=== PATIENT | female | born 1950 | race Caucasian/White ===

== ENCOUNTER → 2024-01-28 10:19 | Outpatient (REF) | payer MEDICARE, OTHER, SELFPAY ==
[2024-01-28 12:20] LABS: Glucose 106 mg/dl (70-99)
[2024-01-28 12:25] LABS: Total Thyroxine 8.11 ug/dl (5.5-11.0)
[2024-01-28 12:39] LABS: TSH 0.78 uIU/ml (0.47-4.68)
[2024-01-28 13:15] LABS: Folate > 20.0 ng/ml (2.76-20); Vitamin B12 839 pg/ml (239-931)
[2024-01-30 10:00] LABS: SSA 52 (Ro)(ENA) Ab, IgG 1 AU/mL (0-40); SSA 60 (Ro)(ENA) Ab, IgG 0 AU/mL (0-40); SSB (La)(ENA) Ab, IgG 0 AU/mL (0-40)
[2024-01-31 04:23] LABS: Albumin 4.18 g/dL (3.75-5.01); Alpha 1 Globulin 0.28 g/dL (0.19-0.46); Alpha 2 Globulin 0.68 g/dL (0.48-1.05); Free Kappa Light Chains,Quant 10.93 mg/L (3.30-19.40); Free Lambda Light Chains,Quant 9.89 mg/L (5.71-26.30); IgA 128 mg/dL (68-408); IgG 791 mg/dL (768-1632); IgM 67 mg/dL (35-263); Immunofixation Electrophoresis IFE Done; Kappa/Lambda Fr Light Ratio 1.11 (0.26-1.65); Total Protein-Electrophoresis 6.7 g/dL (6.3-8.2)
== END ==
LOC: REG 10:19
PROVIDERS: ATTENDING PHYSICIAN Specialist
DX: G60.3 Idiopathic progressive neuropathy (principal); E03.9 Hypothyroidism, unspecified; E11.42 Type 2 diabetes mellitus with diabetic polyneuropathy; D51.8 Other vitamin B12 deficiency anemias
CPT/HCPCS: 36415; 82607; 82746; 82784; 82947; 83521; 84155; 84165; 84436; 84443; 86235; 86255; 86334

== ENCOUNTER → 2024-06-27 14:45 | Outpatient (REF) | payer MEDICARE, OTHER, SELFPAY | LOC: WDC 14:45 | PROVIDERS: ATTENDING PHYSICIAN Student in an Organized Health Care Education/Training Program | DX: Z12.39 Encounter for other screening for malignant neoplasm of breast (principal); Z12.31 Encounter for screening mammogram for malignant neoplasm of breast | CPT/HCPCS: 77063; 77067 ==

== ENCOUNTER 2024-07-21 08:03 | Outpatient (RCR) | payer MEDICARE, OTHER, SELFPAY | END 2024-07-21 23:59 | disposition home or self-care (01) | LOC: RPT 08:03 | PROVIDERS: ATTENDING PHYSICIAN Student in an Organized Health Care Education/Training Program | DX: R26.89 Other abnormalities of gait and mobility (principal); Z73.6 Limitation of activities due to disability; M62.81 Muscle weakness (generalized); F03.90 Unspecified dementia, unspecified severity, without behavioral disturbance, psychotic disturbance, mood disturbance, and anxiety | CPT/HCPCS: 97110; 97112; 97163; 97530 ==

== ENCOUNTER 2024-07-28 06:17 | Day surgery (SDC) | payer MEDICARE, OTHER, SELFPAY | END 2024-07-28 09:14 | disposition home or self-care (01) | LOC: GI 06:17 | PROVIDERS: ATTENDING PHYSICIAN Internal Medicine | DX: Z12.11 Encounter for screening for malignant neoplasm of colon (principal); K64.9 Unspecified hemorrhoids; K57.30 Diverticulosis of large intestine without perforation or abscess without bleeding; D12.0 Benign neoplasm of cecum | CPT/HCPCS: 45380; 88305 ==

== ENCOUNTER 2024-08-05 13:56 | Outpatient (RCR) | payer MEDICARE, OTHER, SELFPAY | END 2024-08-05 23:59 | disposition home or self-care (01) | LOC: RST 13:56 | PROVIDERS: ATTENDING PHYSICIAN Specialist; FAMILY PHYSICIAN Student in an Organized Health Care Education/Training Program | DX: G31.84 Mild cognitive impairment of uncertain or unknown etiology (principal); G30.1 Alzheimer's disease with late onset; F02.80 Dementia in other diseases classified elsewhere, unspecified severity, without behavioral disturbance, psychotic disturbance, mood disturbance, and anxiety; R41.841 Cognitive communication deficit; R41.89 Other symptoms and signs involving cognitive functions and awareness | CPT/HCPCS: 96125; 97129; 97130 ==

== ENCOUNTER → 2024-08-23 14:06 | Outpatient (REF) | payer MEDICARE, OTHER, SELFPAY ==
[2024-08-23 15:54] LABS: TSH 0.04 uIU/ml (0.47-4.68)
[2024-08-23 16:13] LABS: Vitamin B12 972 pg/ml (239-931)
== END ==
LOC: REG 14:06
PROVIDERS: ATTENDING PHYSICIAN Psychiatry & Neurology Neurology; FAMILY PHYSICIAN Student in an Organized Health Care Education/Training Program
DX: R41.3 Other amnesia (principal)
CPT/HCPCS: 36415; 82607; 83921; 84443

== ENCOUNTER 2024-08-26 10:13 | Outpatient (RCR) | payer MEDICARE, OTHER, SELFPAY | END 2024-08-26 23:59 | disposition home or self-care (01) | LOC: RST 10:13 | PROVIDERS: ATTENDING PHYSICIAN Specialist; FAMILY PHYSICIAN Student in an Organized Health Care Education/Training Program | DX: G31.84 Mild cognitive impairment of uncertain or unknown etiology (principal); G30.1 Alzheimer's disease with late onset; F02.80 Dementia in other diseases classified elsewhere, unspecified severity, without behavioral disturbance, psychotic disturbance, mood disturbance, and anxiety; R26.89 Other abnormalities of gait and mobility; R41.89 Other symptoms and signs involving cognitive functions and awareness; R41.841 Cognitive communication deficit | CPT/HCPCS: 97110; 97112; 97129; 97130 ==

== ENCOUNTER 2024-09-02 14:57 | Outpatient (RCR) | payer MEDICARE, OTHER, SELFPAY | END 2024-09-02 23:59 | disposition home or self-care (01) | LOC: RPT 14:57 | PROVIDERS: ATTENDING PHYSICIAN Student in an Organized Health Care Education/Training Program | DX: R26.89 Other abnormalities of gait and mobility (principal); Z73.6 Limitation of activities due to disability; M62.81 Muscle weakness (generalized); F03.90 Unspecified dementia, unspecified severity, without behavioral disturbance, psychotic disturbance, mood disturbance, and anxiety | CPT/HCPCS: 97110; 97112 ==

== ENCOUNTER 2024-09-06 11:34 | Outpatient (RCR) | payer MEDICARE, OTHER, SELFPAY | END 2024-09-06 23:59 | disposition home or self-care (01) | LOC: RST 11:34 | PROVIDERS: ATTENDING PHYSICIAN Specialist; FAMILY PHYSICIAN Student in an Organized Health Care Education/Training Program | DX: G31.84 Mild cognitive impairment of uncertain or unknown etiology (principal); G30.1 Alzheimer's disease with late onset; F02.80 Dementia in other diseases classified elsewhere, unspecified severity, without behavioral disturbance, psychotic disturbance, mood disturbance, and anxiety; R26.89 Other abnormalities of gait and mobility; R41.841 Cognitive communication deficit; R41.89 Other symptoms and signs involving cognitive functions and awareness | CPT/HCPCS: 97129; 97130 ==

== ENCOUNTER → 2024-09-20 10:54 | Outpatient (REF) | payer MEDICARE, OTHER, SELFPAY | LOC: REG 10:54 | PROVIDERS: ATTENDING PHYSICIAN Psychiatry & Neurology Neurology; FAMILY PHYSICIAN Student in an Organized Health Care Education/Training Program | DX: G31.84 Mild cognitive impairment of uncertain or unknown etiology (principal); G30.9 Alzheimer's disease, unspecified; F02.80 Dementia in other diseases classified elsewhere, unspecified severity, without behavioral disturbance, psychotic disturbance, mood disturbance, and anxiety | CPT/HCPCS: 36415 ==

== ENCOUNTER 2024-09-30 11:05 | Outpatient (RCR) | payer MEDICARE, OTHER, SELFPAY | END 2024-09-30 23:59 | disposition home or self-care (01) | LOC: RPT 11:05 | PROVIDERS: ATTENDING PHYSICIAN Student in an Organized Health Care Education/Training Program | DX: R26.89 Other abnormalities of gait and mobility (principal); M62.81 Muscle weakness (generalized); Z73.6 Limitation of activities due to disability; F03.90 Unspecified dementia, unspecified severity, without behavioral disturbance, psychotic disturbance, mood disturbance, and anxiety | CPT/HCPCS: 97110; 97112; 97530 ==

== ENCOUNTER 2024-10-20 09:27 | Outpatient (RCR) | payer MEDICARE, OTHER, SELFPAY | END 2024-10-20 23:59 | disposition home or self-care (01) | LOC: RST 09:27 | PROVIDERS: ATTENDING PHYSICIAN Specialist; FAMILY PHYSICIAN Student in an Organized Health Care Education/Training Program | DX: G31.84 Mild cognitive impairment of uncertain or unknown etiology (principal); G30.1 Alzheimer's disease with late onset; F02.80 Dementia in other diseases classified elsewhere, unspecified severity, without behavioral disturbance, psychotic disturbance, mood disturbance, and anxiety; R41.841 Cognitive communication deficit; R41.89 Other symptoms and signs involving cognitive functions and awareness; R26.89 Other abnormalities of gait and mobility | CPT/HCPCS: 97129; 97130 ==

== ENCOUNTER 2024-11-02 10:12 | Outpatient (RCR) | payer MEDICARE, OTHER, SELFPAY | END 2024-11-02 23:59 | disposition home or self-care (01) | LOC: RPT 10:12 | PROVIDERS: ATTENDING PHYSICIAN Student in an Organized Health Care Education/Training Program | DX: R26.89 Other abnormalities of gait and mobility (principal); M62.81 Muscle weakness (generalized); F03.90 Unspecified dementia, unspecified severity, without behavioral disturbance, psychotic disturbance, mood disturbance, and anxiety; Z73.6 Limitation of activities due to disability | CPT/HCPCS: 97110; 97112; 97530 ==

== ENCOUNTER 2024-11-22 13:58 | Outpatient (RCR) | payer MEDICARE, OTHER, SELFPAY | END 2024-11-22 23:59 | disposition home or self-care (01) | LOC: RST 13:58 | PROVIDERS: ATTENDING PHYSICIAN Specialist; FAMILY PHYSICIAN Student in an Organized Health Care Education/Training Program | DX: G31.84 Mild cognitive impairment of uncertain or unknown etiology (principal); G30.1 Alzheimer's disease with late onset; F02.80 Dementia in other diseases classified elsewhere, unspecified severity, without behavioral disturbance, psychotic disturbance, mood disturbance, and anxiety; R41.841 Cognitive communication deficit; R41.89 Other symptoms and signs involving cognitive functions and awareness; R26.89 Other abnormalities of gait and mobility | CPT/HCPCS: 97129; 97130 ==

== ENCOUNTER 2024-11-24 13:00 | Outpatient (RCR) | payer MEDICARE, OTHER, SELFPAY | END 2024-11-24 23:59 | disposition home or self-care (01) | LOC: RPT 13:00 | PROVIDERS: ATTENDING PHYSICIAN Student in an Organized Health Care Education/Training Program | DX: R26.89 Other abnormalities of gait and mobility (principal); M62.81 Muscle weakness (generalized); F03.90 Unspecified dementia, unspecified severity, without behavioral disturbance, psychotic disturbance, mood disturbance, and anxiety; Z73.6 Limitation of activities due to disability | CPT/HCPCS: 97110; 97530 ==

== ENCOUNTER 2024-12-06 15:00 | Outpatient (RCR) | payer MEDICARE, OTHER, SELFPAY | END 2024-12-06 23:59 | disposition home or self-care (01) | LOC: RST 15:00 | PROVIDERS: ATTENDING PHYSICIAN Specialist; FAMILY PHYSICIAN Student in an Organized Health Care Education/Training Program | DX: G31.84 Mild cognitive impairment of uncertain or unknown etiology (principal); G30.1 Alzheimer's disease with late onset; F02.80 Dementia in other diseases classified elsewhere, unspecified severity, without behavioral disturbance, psychotic disturbance, mood disturbance, and anxiety; R41.841 Cognitive communication deficit; R41.89 Other symptoms and signs involving cognitive functions and awareness; R26.89 Other abnormalities of gait and mobility | CPT/HCPCS: 97129; 97130 ==

== ENCOUNTER 2024-12-27 14:02 | Outpatient (RCR) | payer MEDICARE, OTHER, SELFPAY | END 2024-12-27 23:59 | disposition home or self-care (01) | LOC: RPT 14:02 | PROVIDERS: ATTENDING PHYSICIAN Student in an Organized Health Care Education/Training Program | DX: R26.89 Other abnormalities of gait and mobility (principal); M62.81 Muscle weakness (generalized); F03.90 Unspecified dementia, unspecified severity, without behavioral disturbance, psychotic disturbance, mood disturbance, and anxiety; Z73.6 Limitation of activities due to disability | CPT/HCPCS: 97110; 97112; 97530 ==

== ENCOUNTER 2025-01-10 14:07 | Outpatient (RCR) | payer MEDICARE, OTHER, SELFPAY | END 2025-01-10 23:59 | disposition home or self-care (01) | LOC: RST 14:07 | PROVIDERS: ATTENDING PHYSICIAN Specialist; FAMILY PHYSICIAN Student in an Organized Health Care Education/Training Program | DX: G31.84 Mild cognitive impairment of uncertain or unknown etiology (principal); G30.1 Alzheimer's disease with late onset; F02.80 Dementia in other diseases classified elsewhere, unspecified severity, without behavioral disturbance, psychotic disturbance, mood disturbance, and anxiety; R41.841 Cognitive communication deficit; R41.89 Other symptoms and signs involving cognitive functions and awareness; R26.89 Other abnormalities of gait and mobility | CPT/HCPCS: 97129; 97130 ==

== ENCOUNTER → 2025-01-20 09:58 | Outpatient (REF) | payer MEDICARE, OTHER, SELFPAY ==
[2025-01-20 11:24] LABS: Hematocrit 41.3 % (37.0-47.0); Hemoglobin 13.3 g/dL (12.0-16.0); Mean Corp Hgb Conc. 32.2 g/dL (33.0-37.0); Mean Corpuscular Volume 90.4 fL (81.0-99.0); Platelet Count 237 10^3/uL (130-400); Red Cell Dist. Width 12.3 % (11.5-14.5)
[2025-01-20 11:25] LABS: Nucleated Red Blood Cells % 0 %
[2025-01-20 11:30] LABS: INR 0.97; PT 13.2 Sec (11.4-14.6)
[2025-01-20 11:31] LABS: APTT 29.4 Sec (23.4-35.0)
[2025-01-20 11:46] LABS: Urine Character Slightly Cloudy (Clear)
[2025-01-20 11:59] LABS: ALT (SGPT) 39 U/L (0-35); AST (SGOT) 34 U/L (14-36); Albumin 4.7 g/dl (3.5-5.0); Alkaline Phosphatase 65 U/L (38-126); Blood Urea Nitrogen 20 mg/dl (7-17); Calcium 9.8 mg/dl (8.4-10.2); Carbon Dioxide 31 mmol/L (22-30); Chloride 104 mmol/L (98-107); Glucose 109 mg/dl (70-99); HDL Cholesterol 72 mg/dl; LDL Cholesterol, Calculated 73 mg/dl; Potassium 4.4 mmol/L (3.5-5.1); Sodium 138 mmol/L (135-145); Total Protein 7.2 g/dl (6.3-8.2); Very Low Density Lipoprotein 31 mg/dl (0-30); eGFR > 60.00
[2025-01-20 12:10] LABS: Glycohemoglobin (HgbA1c) 5.9 % (4.0-5.6)
[2025-01-20 12:25] LABS: TSH 0.04 uIU/ml (0.47-4.68)
[2025-01-20 12:32] LABS: Urine Urothelial Cell 0-2 /LPF (FEW)
[2025-01-20 12:33] LABS: Urine White Cell 40-50 /HPF (0-5)
== END ==
LOC: REG 09:58
PROVIDERS: ATTENDING PHYSICIAN Psychiatry & Neurology Neurology; FAMILY PHYSICIAN Student in an Organized Health Care Education/Training Program
DX: F03.90 Unspecified dementia, unspecified severity, without behavioral disturbance, psychotic disturbance, mood disturbance, and anxiety (principal); Z12.11 Encounter for screening for malignant neoplasm of colon; Z12.12 Encounter for screening for malignant neoplasm of rectum; G47.00 Insomnia, unspecified; K59.00 Constipation, unspecified; K59.04 Chronic idiopathic constipation; M85.80 Other specified disorders of bone density and structure, unspecified site; G30.9 Alzheimer's disease, unspecified; F02.80 Dementia in other diseases classified elsewhere, unspecified severity, without behavioral disturbance, psychotic disturbance, mood disturbance, and anxiety; Z79.899 Other long term (current) drug therapy; Z51.81 Encounter for therapeutic drug level monitoring; E78.2 Mixed hyperlipidemia
CPT/HCPCS: 36415; 80053; 80061; 81003; 81015; 83036; 84443; 85025; 85610; 85730; 87077; 87086; 87186

== ENCOUNTER 2025-01-24 13:59 | Outpatient (RCR) | payer MEDICARE, OTHER, SELFPAY | END 2025-01-24 23:59 | disposition home or self-care (01) | LOC: RPT 13:59 | PROVIDERS: ATTENDING PHYSICIAN Student in an Organized Health Care Education/Training Program | DX: R26.89 Other abnormalities of gait and mobility (principal); M62.81 Muscle weakness (generalized); F03.90 Unspecified dementia, unspecified severity, without behavioral disturbance, psychotic disturbance, mood disturbance, and anxiety; Z73.6 Limitation of activities due to disability | CPT/HCPCS: 97110; 97112; 97530 ==

== ENCOUNTER → 2025-02-20 16:16 | Outpatient (REF) | payer MEDICARE, OTHER, SELFPAY ==
[2025-02-20 16:45] LABS: Urine Character Clear (Clear)
[2025-02-20 17:14] LABS: Urine Red Blood Cell 0-2 /HPF (0-2); Urine White Cell 26-30 /HPF (0-5)
== END ==
LOC: REG 16:16
PROVIDERS: ATTENDING PHYSICIAN Student in an Organized Health Care Education/Training Program
DX: R94.6 Abnormal results of thyroid function studies (principal); R82.90 Unspecified abnormal findings in urine
CPT/HCPCS: 81003; 81015; 87077; 87086; 87186

== ENCOUNTER 2025-03-02 08:00 | Outpatient (RCR) | payer MEDICARE, OTHER, SELFPAY | END 2025-03-05 08:45 | disposition home or self-care (01) | LOC: RST 08:00 | PROVIDERS: ATTENDING PHYSICIAN Specialist; FAMILY PHYSICIAN Student in an Organized Health Care Education/Training Program | DX: G31.84 Mild cognitive impairment of uncertain or unknown etiology (principal); G30.1 Alzheimer's disease with late onset; F02.80 Dementia in other diseases classified elsewhere, unspecified severity, without behavioral disturbance, psychotic disturbance, mood disturbance, and anxiety; R41.841 Cognitive communication deficit; R41.89 Other symptoms and signs involving cognitive functions and awareness; R26.89 Other abnormalities of gait and mobility | CPT/HCPCS: 97129; 97130 ==

== ENCOUNTER 2025-03-02 08:00 | Outpatient (RCR) | payer MEDICARE, OTHER, SELFPAY | END 2025-03-05 08:52 | disposition home or self-care (01) | LOC: RPT 08:00 | PROVIDERS: ATTENDING PHYSICIAN Student in an Organized Health Care Education/Training Program | DX: R26.89 Other abnormalities of gait and mobility (principal); M62.81 Muscle weakness (generalized); F03.90 Unspecified dementia, unspecified severity, without behavioral disturbance, psychotic disturbance, mood disturbance, and anxiety; Z73.6 Limitation of activities due to disability | CPT/HCPCS: 97110; 97112 ==

== ENCOUNTER 2025-03-29 08:00 | Outpatient (RCR) | payer MEDICARE, OTHER, SELFPAY | END 2025-04-04 08:43 | disposition home or self-care (01) | LOC: RST 08:00 | PROVIDERS: ATTENDING PHYSICIAN Specialist; FAMILY PHYSICIAN Student in an Organized Health Care Education/Training Program | DX: G31.84 Mild cognitive impairment of uncertain or unknown etiology (principal); G30.1 Alzheimer's disease with late onset; F02.80 Dementia in other diseases classified elsewhere, unspecified severity, without behavioral disturbance, psychotic disturbance, mood disturbance, and anxiety; R41.841 Cognitive communication deficit; R41.89 Other symptoms and signs involving cognitive functions and awareness; R26.89 Other abnormalities of gait and mobility | CPT/HCPCS: 97129; 97130 ==

== ENCOUNTER 2025-03-29 10:05 | Outpatient (RCR) | payer MEDICARE, OTHER, SELFPAY | END 2025-03-29 23:59 | disposition home or self-care (01) | LOC: RPT 10:05 | PROVIDERS: ATTENDING PHYSICIAN Student in an Organized Health Care Education/Training Program | DX: R26.89 Other abnormalities of gait and mobility (principal); M62.81 Muscle weakness (generalized); F03.90 Unspecified dementia, unspecified severity, without behavioral disturbance, psychotic disturbance, mood disturbance, and anxiety; Z73.6 Limitation of activities due to disability | CPT/HCPCS: 97112; 97530 ==

== ENCOUNTER 2025-03-30 18:10 | Observation (INO) | payer MEDICARE, OTHER, SELFPAY ==
[2025-03-30] VITALS (7 sets, daily range): BP systolic 123–151; BP diastolic 67–82; BMI 27.6; BMI 27.3
[2025-03-30 15:28] LABS: Hematocrit 36.9 % (37.0-47.0); Hemoglobin 12.1 g/dL (12.0-16.0); Mean Corp Hgb Conc. 32.8 g/dL (33.0-37.0); Mean Corpuscular Volume 88.3 fL (81.0-99.0); Nucleated Red Blood Cells % 0 %; Platelet Count 255 10^3/uL (130-400); Red Cell Dist. Width 12.3 % (11.5-14.5)
[2025-03-30 15:41] LABS: ALT (SGPT) 35 U/L (0-35); AST (SGOT) 32 U/L (14-36); Albumin 4.4 g/dl (3.5-5.0); Alkaline Phosphatase 92 U/L (38-126); Blood Urea Nitrogen 24 mg/dl (7-17); Calcium 9.5 mg/dl (8.4-10.2); Carbon Dioxide 25 mmol/L (22-30); Chloride 105 mmol/L (98-107); Estimated Creatinine Clearance 57 ml/min; Glucose 113 mg/dl (70-99); Potassium 3.7 mmol/L (3.5-5.1); Sodium 139 mmol/L (135-145); Total Protein 7.1 g/dl (6.3-8.2); eGFR > 60.00
--- NOTE | 2025-03-30 17:22 | ED.GENMED ---
History of Present Illness
<Abrahan Rojas PA-C - Last Filed: 03/30/25 19:12>
General
Chief Complaint: Dizziness
Time Seen by Provider: 03/30/25 15:35
History of Present Illness
History of Present Illness:
74-year-old female with history of dementia presents the emergency department for evaluation of abrupt onset of vertigo that began at 1 PM today. States that she was seated eating lunch when this occurred. Importantly the patient is enrolled in a
clinical trial at the [facility] receiving infusions of donanemab for her dementia, she received an MRI 1 week prior to the infusion and most recent MRI from 10 days ago showed a left sulcal effusion with hemosiderin deposition. As
a result her most recent infusion was delayed. She currently denies any headaches blurred vision, denies any extremity paresthesias. was concerned that her speech seemed a bit off during the episode of dizziness. At this time she does
feel somewhat improved. No chest pain or shortness of breath.
Review of Systems
<Abrahan Rojas PA-C - Last Filed: 03/30/25 19:12>
Review of Systems
Allergies reviewed?: Yes
All Other Systems: ROS reviewed and negative except as documented in HPI and ROS
Phy Exam
<Abrahan Rojas PA-C - Last Filed: 03/30/25 19:12>
Physical Exam
Physical Exam:
GEN: Well appearing, NAD, WDWN
HEENT: Oral mucosa moist, no scleral icterus, no nasal congestion
Cardiac: Regular rate
Lung: No respiratory distress, no tachypnea
MSK: No gross deformity or injuries
Skin: Good color, no pallor or jaundice, no rashes
Neuro: AO x3; CN II-XII grossly intact. BUE strength 5/5 in all campos, sensation intact and symmetric. BLE strength 5/5 in all campos, sensation intact and symmetric. Shuffling gait, no ataxia, normal [id number] and [id number] however
extremity tremors make [id number] challenging
Psych: Calm, cooperative
Course
<Abrahan Rojas PA-C - Last Filed: 03/30/25 19:12>
Orders/Labs/Results
Orders:
Orders
03/30/25 Dinner
Cholesterol Lowering
At Your Request: Full Participation
Cholesterol Lowering: Sodium, 2 Gram
03/30/25 15:15
Electrocardiogram (*1) Urgent
Reason for Study: Abdominal Pain
EKG- Treatment ONCE
03/30/25 15:20
Complete Blood Count/With Diff Urgent
Comprehensive Metabolic Panel Urgent
03/30/25 15:46
CT Head W/o Iv Contrast Urgent
Comment:
Reason For Exam: dizziness
03/30/25 17:51
Admit/Transfer Patient As Directed
Co-Sign Provider:
Level of Care: Observation services
Assign to:: Telemetry
Physician / Group: Fritz Judd
Diagnosis: diplopia, vertigo
Reason for Telemetry: CVA/TIA
Date to Stop Telemetry: 04/02/25
Time to Stop Telemetry: 11:00
03/30/25 17:52
PRN Pain Medication Management As Directed
May give lesser potent ordered pain med per pt: Yes
preference::
Protocol:: Medication orders for pain may be administered in a
manner that supports deferring to patient preference
when the pt is:
- Requesting an ordered lesser potent pain medication.
Least to most potent pain medications are defined
as: acetaminophen < NSAID < tramadol < opioids
(morphine, oxycodone, hydromorphone).
- Requesting a lesser dose of the same medication IF
ORDERED.
- Requesting a less intrusive route of administration
if both routes are prescribed by the provider (PO <
IV).
03/30/25 17:53
Code Status As Directed
Resuscitation Status: Full Code
04/02/25 11:00
DC Protocol for Telemetry ONCE
Abnormal Lab Results
03/30/25
15:20
RBC 4.18 L 10^6/uL
(4.20-5.40)
Hct 36.9 L %
(37.0-47.0)
MCHC 32.8 L g/dL
(33.0-37.0)
Absolute Monos (auto) 0.8 H 10^3/uL
(0.1-0.6)
Monocytes % 10.3 H %
(1.7-9.3)
BUN 24 H mg/dl
(7-17)
Glucose 113 H mg/dl
(70-99)
03/30/25 15:20
03/30/25 15:20
Vital Signs
Initial and Last Documented VS:
Initial Vital Signs
Temp Pulse Resp Pulse Ox
98.5 F 82 18 96
03/30/25 15:07 03/30/25 15:07 03/30/25 15:07 03/30/25 15:07
Last Documented Vital Signs
Temp Pulse Resp BP Pulse Ox
98.5 F 80 14 137/70 95
03/30/25 15:07 03/30/25 18:42 03/30/25 18:42 03/30/25 18:42 03/30/25 18:42
<Wilberto Hart MD - Last Filed: 03/30/25 17:38>
Orders/Labs/Results
Orders:
Orders
03/30/25 Dinner
Cholesterol Lowering
At Your Request: Full Participation
Cholesterol Lowering: Sodium, 2 Gram
03/30/25 15:15
Electrocardiogram (*1) Urgent
Reason for Study: Abdominal Pain
EKG- Treatment ONCE
03/30/25 15:20
Complete Blood Count/With Diff Urgent
Comprehensive Metabolic Panel Urgent
03/30/25 15:46
CT Head W/o Iv Contrast Urgent
Comment:
Reason For Exam: dizziness
03/30/25 17:51
Admit/Transfer Patient As Directed
Co-Sign Provider:
Level of Care: Observation services
Assign to:: Telemetry
Physician / Group: Fritz Judd
Diagnosis: diplopia, vertigo
Reason for Telemetry: CVA/TIA
Date to Stop Telemetry: 04/02/25
Time to Stop Telemetry: 11:00
03/30/25 17:52
PRN Pain Medication Management As Directed
May give lesser potent ordered pain med per pt: Yes
preference::
Protocol:: Medication orders for pain may be administered in a
manner that supports deferring to patient preference
when the pt is:
- Requesting an ordered lesser potent pain medication.
Least to most potent pain medications are defined
as: acetaminophen < NSAID < tramadol < opioids
(morphine, oxycodone, hydromorphone).
- Requesting a lesser dose of the same medication IF
ORDERED.
- Requesting a less intrusive route of administration
if both routes are prescribed by the provider (PO <
IV).
03/30/25 17:53
Code Status As Directed
Resuscitation Status: Full Code
04/02/25 11:00
DC Protocol for Telemetry ONCE
Abnormal Lab Results
03/30/25
15:20
RBC 4.18 L 10^6/uL
(4.20-5.40)
Hct 36.9 L %
(37.0-47.0)
MCHC 32.8 L g/dL
(33.0-37.0)
Absolute Monos (auto) 0.8 H 10^3/uL
(0.1-0.6)
Monocytes % 10.3 H %
(1.7-9.3)
BUN 24 H mg/dl
(7-17)
Glucose 113 H mg/dl
(70-99)
03/30/25 15:20
03/30/25 15:20
Vital Signs
Initial and Last Documented VS:
Initial Vital Signs
Temp Pulse Resp Pulse Ox
98.5 F 82 18 96
03/30/25 15:07 03/30/25 15:07 03/30/25 15:07 03/30/25 15:07
Last Documented Vital Signs
Temp Pulse Resp BP Pulse Ox
98.5 F 80 14 137/70 95
03/30/25 15:07 03/30/25 18:42 03/30/25 18:42 03/30/25 18:42 03/30/25 18:42
<Abrahan oRjas PA-C - Last Filed: 03/30/25 19:12>
MDM/Problems Addressed
MDM/Problems Addressed:
Patient presenting with vertigo, it does sound more peripheral in nature however upon reevaluation the patient informed me that she has diplopia. On reassessment I did not find any evidence for extraocular motion deficit. Head CT shows no
abnormalities and discussion with neurology on-call and suggested that her monoclonal infusion for dementia is not likely related. Otherwise do not suspect her symptoms are stroke related, I would not consider her a TNK candidate regardless given
the recent MRI showing microhemorrhages/hemosiderin deposition would be a direct contraindication. She does appear steady with ambulation however given her reports of vertical diplopia, binocular, I feel she warrants further neurologic evaluation
as inpatient with consideration of MRI for further workup
<Abrahan Rojas PA-C - Last Filed: 03/30/25 19:12>
*Pulse Oximetry
SaO2: 94
Oxygen Mode of Delivery: Room air
Patient hypoxic: no
*Critical Care Note
Total Time (30-74mins, 75-104mins- exclusive of procedures): Not Applicable
<Abrahan Rojas PA-C - Last Filed: 03/30/25 19:12>
Update Note
Update Note:
1710: Updated patient regarding CT scan findings. Discussed the case with neurology on-call attending, Dr. Cavazos, informs me that patient has no headache and no sign of hemorrhage or brain edema symptoms are unlikely to be related to the
monoclonal infusion. Upon discussing these findings with the patient she tells me that she is currently seeing diplopia which is the first report of this. The diplopia is binocular and resolves with rightward gaze but does not resolve with left or
midposition gaze.
ED Attending Note
<Abrahan Rojas PA-C - Last Filed: 03/30/25 19:12>
-
Portions of this chart may have been created with voice recognition software.� Occasional wrong word or��sound alike� substitutions may have occurred due to the inherent limitations of voice recognition software.
<Wilberto Hart MD - Last Filed: 03/30/25 17:38>
ED Attending Note
Patient seen and examined by attending physician: Yes
ED Attending Note:
I have seen and evaluated the patient with a [id number] encounter. I have spoken to the advance practicer provider and involved in the medical history, the physical exam, medical decision making.
Evaluation and management service: agree unless noted differently below.
Results interpretation: agree unless noted differently below.
Focused HPI: 74-year-old female with history as noted presents with her for evaluation of dizziness. Of note, patient is enrolled in the study at [place] for dementia and is receiving treatment with donanemab. It sounds like this afternoon
around 1 PM she had acute onset of room spinning sensation. says that she had some difficulty expressing herself. It sounds like she has also had some double vision. No facial droop, focal weakness or numbness noted.
Physical exam: Hypertensive but otherwise normal vitals. No facial droop noted, no cranial nerve defects noted, moving all extremities equally without gross deficit.
Medical Decision Makin-year-old female presents with acute onset dizziness, double vision and apparently some speech difficulties as well. Vitals and exam as above. Labs and imaging here thus far unremarkable. Could be amyloid related
disease versus stroke versus peripheral vertigo�will admit for continued evaluation.
Discharge Plan
Departure
Patient Disposition: Admit
Date of Disposition: 03/30/25
Time of Disposition: 17:28
Admit to: Med/Surg
Presentation/result/management discussed w/ accepting MD/DO: Hospitalist
Discharge Problem:
Vertigo, Diplopia
Interventions
Interventions:
*Risk Screen - Suicide Last Done: 03/30/25 15:00
*General Assessment Last Done: 03/30/25 15:00
*Neglect/Abuse Screening Last Done: 03/30/25 15:00
ED- Neurological Assessment Last Done: 03/30/25 16:23
ED Swallowing Screen Last Done: 03/30/25 17:30
--- NOTE | 2025-03-30 17:33 | HPS.HSE ---
Family Physician
-
Family Physician: Matty Piper, DO
Chief Complaint
-
acute onset vertigo
History of Present Illness
Patient is a 74-year-old female with past medical history significant for senile dementia, hyperlipidemia and mood disorder who presented to [facility] ED for evaluation of acute onset vertigo. Patient reports sitting down after eating lunch when the room
appeared to be spinning. She has had episodes of vertigo in the past and feels like then she was spinning verse the room spinning like today. Importantly the patient is enrolled in a clinical trial at the [facility] receiving
infusions of donanemab for her dementia, she received an MRI 1 week prior to the infusion and most recent MRI from 10 days ago showed a left sulcal effusion with hemosiderin deposition. As a result her most recent infusion was delayed. Patient
complained of diplopia post head CT in ED and has since resolved spontaneously. Patient denies any headache, blurred vision, weakness or numbness. She did have an episode of emesis shortly after spinning started.
Medical History
Past Medical History
Past Medical History: Reports Other
Additional Past Medical History:
senile dementia
hyperlipidemia
mood disorder
hypokalemia
Past Surgical History: Reports Other
Additional Past Surgical History:
Bilateral cataracts extraction 06/2016
Gallbladder (2012)
ight Total Hip dos 03/31/18
cholecystectomy
Social History
Tobacco: Non-smoker
Alcohol: Occasional
Drug: None
Personal:
Living: With Family
Family History
Family History: Not pertinent
Allergies / Home Medications
Allergies reflects when Allergies were last updated in [employer].
Home Medications with original date entered in [employer]
Allergy/Medication List:
Allergies
Allergy/AdvReac Type Severity Reaction Status Date / Time
codeine (Codeine) Allergy nausea Verified 03/30/25 15:05
doxycycline (Doxycycline) Allergy vomiting Verified 03/30/25 15:05
morphine Allergy pt denies Verified 03/30/25 15:05
tetracycline (Tetracycline) Allergy vomiting Verified 03/30/25 15:05
Home Medications
multivitamin with folic acid 400 mcg tablet (Tab-A-Vanesa) 1 tab PO DAILY 07/28/17
atorvastatin 20 mg tablet 20 mg PO DAILY 03/04/18
biotin 10,000 mcg chewable tablet (Hair, Skin and Nails (biotin)) 10,000 mcg PO DAILY 03/30/25
calcium carbonate 500 mg PO DAILY 03/30/25
cholecalciferol (vitamin D3) 25 mcg (1,000 unit) tablet (Vitamin D3) 25 mcg PO DAILY 03/30/25
fluoxetine 20 mg capsule 60 mg PO DAILY 03/30/25
krill oil 500 mg capsule 1,000 mg PO DAILY 03/30/25
memantine 10 mg tablet 10 mg PO DAILY 03/30/25
trazodone 50 mg tablet 25 mg PO HS 03/30/25
Review of Systems
-
History Source: Patient
Constitutional: Reports No Symptoms
EENT: Reports No Symptoms
Respiratory: Reports No Symptoms
Cardiac: Reports No Symptoms
Abdomen/GI: Reports Vomiting
: Reports No Symptoms
Musculoskeletal: Reports No Symptoms
Skin: Reports No Symptoms
Neurological: Reports Dizzy; Denies Headache, Weakness or Numbness
Endocrine: Reports No Symptoms
Hematologic/Lymphatic: Reports No Symptoms
Psych: Reports No Symptoms
Physical Exam
Vital Signs
Vital Signs
Temp Pulse Resp BP Pulse Ox
98.5 F 85 18 151/75 94
03/30/25 15:07 03/30/25 16:15 03/30/25 16:15 03/30/25 16:00 03/30/25 17:27
Physical Exam
General: Well Developed, Well Nourished, No Apparent Distress, Comfortable and Conversant
HEENT: NormoCephalic, Moist mucous membranes, Atraumatic, Nose Appears Normal and Ears Appear Normal
Respiratory: Clear and Non Labored Respirations
Cardiac: S1/S2 and Regular Rhythm; No Murmur, Rub or Gallop
GI: Soft, Non Tender, Non Distended and Normal Bowel Sounds; No Organomegaly
Rectal: Deferred by Provider
Genito-urinary: Deferred by me
Musculoskeletal: No Clubbing, No Cyanosis and No Edema
Skin: Warm and IV/Catheter Site; No Rash
Neuro: Awake, AO x 3, Nonfocal/grossly intact, Cranial Nerves Intact (II-XII), No Sensory Deficits and Tremors (known extremity tremor ); No Slurred Speech, Facial Droop or Sedated
Psych: Calm
Laboratory Results
-
03/30/25 15:20
03/30/25 15:20
Laboratory Results
Total Bilirubin 0.4 mg/dl (0.2-1.3) 03/30/25 15:20
AST 32 U/L (14-36) 03/30/25 15:20
ALT 35 U/L (0-35) 03/30/25 15:20
Alkaline Phosphatase 92 U/L (38-126) 03/30/25 15:20
Data Reviewed
-
CT Scan: Report Reviewed by me (Head CT: No acute intracranial abnormalities. Findings again seen compatible with diffuse cortical atrophy with nonspecific white matter changes as described above.)
Lab Data: Labs Reviewed by me
Impression/Plan
-
IMPRESSION/PLAN:
#dizziness with diplopia 2/2 vertigo vs. CVA/TIA
EKG: NORMAL SINUS RHYTHM
Head CT: No acute intracranial abnormalities.
Findings again seen compatible with diffuse cortical atrophy with nonspecific white matter changes as described above.
- Admit to telemetry
- Consult Neurology
- neuro checks per protocol
- MRI in morning
#senile dementia
trial drug at [place], infusions of donanemab
she received an MRI 1 week prior to the infusion and most recent MRI from 10 days ago showed a left sulcal effusion with hemosiderin deposition
- continue memantine
#hyperlipidemia
- continue atorvastatin
#mood disorder
- continue trazodone
Code status: full code
DVT prophylaxis: SCDs
--- NOTE | 2025-03-30 17:39 | W.PN.UPDATE ---
Update Note
Progress Note Update
This serves as an addendum to the H&P dictated by Elizabeth Garcia on 03/30/2025.
I saw and examined the patient.
The CNC MACHINE OPERATOR or PA's note was reviewed and I agree with the note.
Comment:
Patient 74-year-old female history of dementia came to the hospital with sudden onset of dizziness. Patient had transient dizziness described as spinning sensation around her and also difficulty with speech as well as double vision. Most of her
symptoms resolved by the time of my evaluation. Patient is on anti-amyloid monoclonal antibody, Donanemab as outpatient. CT head showed no acute intracranial abnormality. She was referred to hospitalist service for further evaluation.
Heart regular rate and rhythm S1-S2 no murmurs
Lungs clear to auscultation bilateral
Neuro alert oriented x 3, all cranial nerves are intact, no gross neurological deficit appreciated
A/P:
Dizziness--> seen CT scan of the head, neurological check and NIH, MRI brain, will check records from [facility].
[2025-03-30] MEDS: DESYREL 25 MG PO (22:24)
[2025-03-30 23:55] LABS: TSH 0.02 uIU/ml (0.47-4.68)
--- NOTE | 2025-03-31 03:06 | PTCARENOTE ---
03/30 2145, pt received from ED with present. pt ambulated x1 assist to bed. bedalarm in place. oriented pt to room, poc, and call [email or web address]. admission assessment completed. placed on Tele #[id number]
[2025-03-31 03:20] VITALS: BP 116/62
[2025-03-31 07:25] VITALS: BP 108/66
[2025-03-31] MEDS: LIPITOR 20 MG PO (08:00)
[2025-03-31] MEDS: PROZAC 60 MG PO (08:01)
[2025-03-31] MEDS: NAMENDA 10 MG PO (08:01)
--- NOTE | 2025-03-31 09:27 | CON.NEURO4 ---
Addendum entered and electronically signed by Pedro Howe MD 03/31/25 12:21:
Studies reviewed.
I have personally examined the patient. I reviewed and agree with the PANTOGRAPH ENGRAVER's Note.
My addenda:
Awake, alert, interactive. No acute distress.
Speech intact.
Follows 2-step requests w/ difficulty. Bilateral distal tremor with action
Extra-ocular movements grossly intact.
Facial movements full and symmetric. Hearing intact to normal conversational volume.
Normal UE movements bilaterally.
Neck: full ROM.
Chest: no dyspnea
Heart: no JVD
Ext: (-) Clubbing, (-) Cyanosis, (-) Edema
IMPRESSIONS/RECOMMENDATIONS:
Abrupt onset of vertigo
Potentially secondary to Abnormal Radiology Imaging Abnormality-Type E or Type H (ARIA-E, ARIA-H), or due to migraine with aura
provide Prochlorperazine for headache
check MRI of brain
consider high-dose steroids for ARIA if present
physical therapy
hold Donanemab for now
D/W patient / family
All questions answered.
Will continue to follow patient.
Original Note:
Documented by User: Elizabeth Baird NP 03/31/25 12:11
Consultation - Neurology 4
-
CONSULTING PHYSICIAN: Pedro Howe MD
REFERRING PHYSICIAN: Hospitalists/ZAHRAA Mckeon
DICTATED BY: ZAHRAA Doss
DATE/TIME OF REQUEST: 03/30/25
DATE/TIME OF CONSULTATION: 03/31/25
Reason for Consultation: Dizziness
History of Present Illness:
This is a 74-year-old right-handed female who has presented to the hospital on 03/30/25 with report of dizziness. Patient is followed by Dr. Whitt at the [facility] for dementia. She has been receiving donanemab. They report that a couple
of weeks ago she had her monthly MRI brain imaging completed prior to receiving the medication, and it demonstrated microbleeds so her dose was held with a plan to repeat MRI brain imaging next month and go from there.
From previous evaluation by Dr. Whitt on 12/15/24:
'HPI: 74 y.o. right handed woman with a past medical history of migraines, constipation, presents to the [facility] for evaluation of cognitive changes for 6-12 months. She was last seen here on 09/19/2024. At prior visits
the patient and family reported: 08/04/2024: Patient has previously seen a neurologist in Dr. Payne, who prescribed fluoxetine and memantine (10mg daily) and recommended PT for the patient, and the PT then suggested speech therapy. She was last seen
here on 08/04/2024. 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 Early
symptoms included increased irritability provoked by difficulty with word finding and difficulty with short term memory. Though note that 2 years ago the patient voluntary stopped driving as she stated that she feared that she might get
lost. Though family notes that she has never gotten lost. Patient is currently participating in physical and speech therapy at [facility]. Patient notes she has been having difficulty with short term memory.'
Patient and her report that she was in her usual state yesterday morning when they were out shopping. They returned home around 1300 and she reports she had a sudden onset of dizziness which she describes as a room-spinning sensation. She
then proceeded to vomit. She denies any hearing changes or tinnitus. Today (03/31/25), they report she is back to her baseline with the exception of a mild frontal headache. They note that she has had 1-2 episodes of similar dizziness in the past
about 6-7 years ago. She also notes a history of severe migraines in her younger decades not associated with visual aura, she now has about 2 mild headaches per week for which she takes tylenol.
Past Medical History: Dementia, HLD, insomnia, mood disorder, migraine without aura
Surgical History: Cholecystectomy, R THR, b/l cataract removal
Family History: Mother- Alzheimer's. Brother- migraines.
Social History: Denies tobacco and illicit drug use. Occasional alcohol.
Allergies: Doxycycline, tetracycline, morphine, codeine.
Home Medications: See below.
Review of Symptoms:
Patient denies any fever, chest pain, shortness of breath, GI or symptoms.
�Per the HPI.�All systems are reviewed negative except above.
Physical Exam:
The patient is afebrile, abdomen is nondistended, breathing is unlabored, skin is warm and dry, no edema.
NIH Stroke Scale:
I performed the NIH stroke scale on the patient on 03/31/25 at 0930. The patient scored 1 points on the NIH stroke scale assessment, which were assigned as follows: See below.
Neurologic Examination:
The patient is awake, alert and oriented to self and place only, not month/year. Repetitive statements. She is able to follow commands and answer questions appropriately. There is no aphasia or dysarthria. On cranial nerve assessment, pupils are 3
mm bilateral, round and reactive to light and accommodation. Visual go are full. Extraocular movements are intact. Facial sensations are intact and bilaterally symmetrical, there is no facial asymmetry. Hearing is intact bilaterally to normal
conversation volume. Tongue palate and uvula are midline. Sternocleidomastoid strengths are full bilaterally. Motor strengths are 5/5 bilateral upper and lower extremities on medical research [place] scale. There is no drift. There is a low
amplitude semi rhythmic tremor in distal bilateral upper extremities, present at rest and on exertion, L>R. Deep tendon reflexes are absent bilateral upper and lower extremities and Babinski is absent bilaterally. There was no extinction noted on
double simultaneous stimulation. Coordination is intact by finger to nose bilaterally.
Lab Results: See below.
Neuro Imaging:
1. MRI brain 03/20/25: New sulcal effusion in left temporo-occipital junction with adjacent hemosiderin deposits. Small left frontal microhemorrhage (series 2 image 63, series 3 image 60) is new since initial MRI from 09/01/2024, but was likely
present although less conspicuous on subsequent prior from 02/20/2025.
Differentials for the patient's presentation include:
1. Transient dizziness; possible etiologies include vertigo syndrome, migraine with aura, cerebral edema, less likely small ischemic stroke.
2. Donanemab usage in a patient with dementia.
Patient has the following risk factors for their symptoms: Donanemab usage, hx vertigo
Recommendations:
-provide prochlorperazine 10mg x1 now and as needed for headache
-MRI Brain noncontrast pending.
-PT evaluation.
Discussed patient care with: Dr. Howe, the patient, patient's spouse
Vital Signs and Labs
-
Vital Signs and Labs:
Vital Signs
Temp Pulse Resp BP Pulse Ox
98.2 F 88 16 108/66 98
03/31/25 07:25 03/31/25 07:25 03/31/25 07:25 03/31/25 07:25 03/31/25 10:07
Lab Results
03/30/25 15:20
03/30/25 15:20
Sodium 139 mmol/L (135-145) 03/30/25 15:20
Potassium 3.7 mmol/L (3.5-5.1) 03/30/25 15:20
BUN 24 mg/dl (7-17) H 03/30/25 15:20
Glucose 113 mg/dl (70-99) H 03/30/25 15:20
Calcium 9.5 mg/dl (8.4-10.2) 03/30/25 15:20
Medications
-
Active Medications
Generic Name Dose Route Start Last Admin
Trade Name Freq PRN Reason Stop Dose Admin
Acetaminophen 650 mg 03/30/25 21:36
Acetaminophen 325 Mg Tablet PO 04/27/25 21:35
Q4HPRN PRN
mild pain/LI/temp> 100.4F
Atorvastatin Calcium 20 mg 03/31/25 08:00 03/31/25 08:00
Atorvastatin (Lipitor) 20 Mg Tablet PO 04/28/25 07:59 20 mg
DAILY ELDA Administration
Fluoxetine HCl 60 mg 03/31/25 08:00 03/31/25 08:01
Fluoxetine 20 Mg Capsule PO 04/28/25 07:59 60 mg
DAILY ELDA Administration
Memantine 10 mg 03/31/25 08:00 03/31/25 08:01
Memantine 10 Mg Tablet PO 04/28/25 07:59 10 mg
DAILY ELDA Administration
Prochlorperazine Edisylate 10 mg 03/31/25 09:40
Prochlorperazine 10 Mg/2 Ml Vial IV 04/28/25 09:39
Q6HPRN PRN
headache
Sodium Chloride 0 flush 03/30/25 22:00
Sodium Chloride 0.9% (Flush) Syringe IV 04/27/25 21:59
PER PROTOCOL ELDA
Trazodone HCl 25 mg 03/30/25 22:00 03/30/25 22:24
Trazodone 50 Mg Tablet PO 04/27/25 21:59 25 mg
HS ELDA Administration
Home Medications
�Medication �Instructions �Recorded
multivitamin with folic acid 400 1 tab PO DAILY Supplement 07/28/17
mcg tablet (Tab-A-Vanesa)
atorvastatin 20 mg tablet 20 mg PO DAILY High Cholesterol 03/04/18
biotin 10,000 mcg chewable tablet 10,000 mcg PO DAILY Supplement 03/30/25
(Hair, Skin and Nails (biotin))
calcium carbonate 500 mg PO DAILY Supplement 03/30/25
cholecalciferol (vitamin D3) 25 25 mcg PO DAILY Supplement 03/30/25
mcg (1,000 unit) tablet (Vitamin
D3)
fluoxetine 20 mg capsule 60 mg PO DAILY Mental 03/30/25
Health/Anxiety
krill oil 500 mg capsule 1,000 mg PO DAILY Supplement 03/30/25
memantine 10 mg tablet 10 mg PO DAILY Muscle Spasms 03/30/25
trazodone 50 mg tablet 25 mg PO HS Sleep 03/30/25
NIH Stroke Score
Subsequent NIH Scale
Date of Subsequent NIH Scale: 03/31/25
Time of Subsequent NIH Scale: 09:30
NIH Stroke Score
Level of Consciousness: 0 - Alert
LOC Questions: 1-Answers one correctly
LOC Commands: 0-Performs both correctly
Best Horizontal Gaze: 0-Normal
Visual Go: 0=Normal, no visual loss
Facial Palsy: 0=Normal, symmetrical
Motor - Right Arm: 0=No drift 10 seconds
Motor - Left Arm: 0=No drift 10 seconds
Motor - Right Le-No drift 5 seconds
Motor - Left Le-No drift 5 seconds
Limb Ataxia: 0-Absent
Sensation: 0-Normal
Best Language: 0-No aphasia
Dysarthria: 0-Normal
Extinction and Inattention: 0-No abnormality
NIH Total Score:: 1
Modified [place]bal[place] (mRS) Score
Modified [place]baldo Scale (mRS): No symptoms
Score: 0

Documented by User: Pedro Howe MD 03/31/25 12:15
NIH Stroke Score
NIH Stroke Score
NIH Total Score:: 1
Modified [place] (mRS) Score
Score: 0
--- NOTE | 2025-03-31 10:40 | CM ---
Addendum entered by Kathryn Johnson 03/31/25 16:09:
CM Consult completed for VN- declines VN - wants to return to outpatient therapy for PT and ST here at .
Also gave authorization release form to for medical records
tt Dr. Flowers for script for outpatient PT & ST
PLAN: Home with resuming outpatient PT and ST
to transport
Original Note:
Patient seen at bedside
IA complete
Dx: Diplopia
HERNANDEZ form explained & signed
Await MRI
history of dementia came to the hospital with sudden onset of dizziness
Patient is on anti-amyloid monoclonal antibody, Donanemab as outpatient
Lives with her in a 2 story home, 2 sulma, 12 steps to bed/bath
plof: Independent with walker
assist with medications
DME: Walker
Current with outpatient PT & ST (will need script at [facility]), denies rehab
pcp: Dr. Piper
pharmacy: [facility]
PLAN: home, resume outpatient PT/ST when stable
[2025-03-31] MEDS: COMPAZINE 10 MG IV (10:48)
--- NOTE | 2025-03-31 11:10 | W.PN.HOSP.TC ---
Today's Communication/Plan
-
MRI brain. Neurology eval
Assessment / Plan
Assessment / Plan
Physical exam:
General: Acutely ill
HEENT: Normocephalic, Atraumatic and Moist Mucous Membranes
Respiratory: Clear to Auscultation; Negative Wheezes, Rales or Rhonchi
Cardiac: Regular Rhythm and S1/S2
GI: Soft, Nontender and Nondistended
Musculoskeletal: No Clubbing, No Cyanosis and No Edema
Neuro: Awake, Alert and Oriented, no neurological deficits
Psych: Calm
A/P:
Dizziness with vision abnormalities and difficulty speech:
Differential diagnoses include stroke versus monoclonal antibody side effect versus other
MRI of the brain pending
PT OT eval
Neurology consult today
Discussed with at bedside
Headache:
Start prochlorperazine as needed
Dementia:
On Donanemab as outpatient. Currently on hold.
Continue Memantine 10 mg p.o. daily
Hyperlipidemia:
Continue atorvastatin 20 mg p.o. daily
Depression:
Continue fluoxetine 60 mg p.o. daily
Continue trazodone 25 mg p.o. nightly
DVT prophylaxis:
SCDs
CODE STATUS:
Full code
Total time spent on today's encounter was 52 minutes which included time spent in counseling the patient/family regarding diagnosis and treatment plan as listed above, goals of care, and symptom management. Case was discussed with nursing staff,
specialists, and care coordinators/case management. All labs and imaging personally reviewed by me. Remainder the time spent in detailed review of previous records, lab data, imaging, and other medical provider documentation.
Anticipated Discharge: > 48 hours
Subjective/Interval History
-
Date of Service: March 31, 2025
Patient denies dizziness today. Complains of headache. No chest pain or shortness of breath
Objective Data
-
Vital Signs:
Vital Signs
Temp Pulse Resp BP Pulse Ox
98.2 F 88 16 108/66 98
03/31/25 07:03/31/25 07:03/31/25 07:03/31/25 07:03/31/25 10:07
[2025-03-31 11:19] VITALS: BP 104/56
[2025-03-31 11:33] VITALS: BP 102/54; PULSE 96; O2SAT 94
[2025-03-31 11:45] VITALS: BP 102/54; PULSE 96; O2SAT 95
[2025-03-31] MEDS: TYLENOL 650 MG PO (14:22)
[2025-03-31 15:15] VITALS: BP 123/60
--- NOTE | 2025-03-31 15:26 | W.DCSUMMARY ---
Discharge Summary
Discharge Data
Date of Admission: 03/30/25
Date of Discharge: 03/31/25
-
Pending Results: No
Hospital Course
Patient is 74-year-old female with history of dementia, migraine, came into the hospital with sudden onset of vertigo, headache, and some possible speech difficulty not well-characterized. Patient has been following at the memory clinic at [place] and
had been receiving donanemab which has not been on hold due to some microbleed and waiting for follow-up MRI as outpatient to decide next steps. Neurology here was consulted. Patient had an MRI of the brain and it showed no acute intracranial
abnormalities. He was given prochlorperazine as needed. Neurology felt that her presentation was more consistent with migraine with aura and from their standpoint patient could be discharged. She was evaluated by PT who recommended outpatient
therapy. institutional asset manager consulted for help upon discharge. She will be discharged within a stable condition today.
Discharge Plan
-
Patient Disposition: Home with Home Care
Discharge Diagnosis/Procedures: Vertigo. Migraine Headache. Dementia
Condition: Fair
Diet: Low Cholesterol
Activity: As tolerated
Blood Work: Please PCP to order CBC, BMP within 1 week
Referrals:
Matty Piper DO [Family Provider, Family Practice] - in less than 1 week
Pedro Howe MD [Active, Neurology] - in two to four weeks
Prescriptions:
Continued
multivitamin with folic acid [Tab-A-Vanesa] 1 TABLET tablet
1 tab PO DAILY
atorvastatin 20 MG tablet
20 mg PO DAILY
trazodone 50 mg Tablet
25 mg PO HS
calcium carbonate 500 mg calcium (1,250 mg) Tablet
500 mg PO DAILY
fluoxetine 20 mg Capsule
60 mg PO DAILY
memantine 10 mg Tablet
10 mg PO DAILY
cholecalciferol (vitamin D3) [Vitamin D3] 25 mcg (1,000 unit) Tablet
25 mcg PO DAILY
krill oil 500 mg Capsule
1,000 mg PO DAILY
Hair, Skin and Nails (biotin) 10,000 mcg Tablet,Chewable
10,000 mcg PO DAILY
Discharge Orders:
Discharge Patient (As Directed); Ordered 03/31/25
Ordered By: Fritz Judd
Discharge Date and Time
Discharge Date/Time: 03/31/25 17:16
Print Language: FRISIAN
[2025-04-03 13:02] LABS: Lyme Antibody Screen, EIA Negative (Negative)
== END 2025-03-31 17:16 | disposition home or self-care (01) ==
LOC: 4 WEST ACU 18:10
PROVIDERS: Emergency Medicine; ADMITTING PHYSICIAN Hospitalist; CONSULT PHYSICIAN Psychiatry & Neurology Neurology; EMERGENCY PHYSICIAN Emergency Medicine; FAMILY PHYSICIAN Student in an Organized Health Care Education/Training Program
DX: H53.2 Diplopia (principal); R42 Dizziness and giddiness; E78.5 Hyperlipidemia, unspecified; F03.90 Unspecified dementia, unspecified severity, without behavioral disturbance, psychotic disturbance, mood disturbance, and anxiety; F32.A Depression, unspecified; G47.00 Insomnia, unspecified; Z79.899 Other long term (current) drug therapy; E87.6 Hypokalemia; R51.9 Headache, unspecified
CPT/HCPCS: 70450; 70551; 80053; 84443; 85025; 86618; 93005; 97162; 97166; 99285; G0378

== ENCOUNTER → 2025-04-14 14:07 | Outpatient (REF) | payer MEDICARE, OTHER, SELFPAY | LOC: RAD 14:07 | PROVIDERS: ATTENDING PHYSICIAN Student in an Organized Health Care Education/Training Program | DX: G89.29 Other chronic pain (principal) | CPT/HCPCS: 72110 ==

== ENCOUNTER 2025-04-27 08:16 | Outpatient (RCR) | payer MEDICARE, OTHER, SELFPAY | END 2025-04-27 23:59 | disposition home or self-care (01) | LOC: RPT 08:16 | PROVIDERS: ATTENDING PHYSICIAN Student in an Organized Health Care Education/Training Program | DX: R26.89 Other abnormalities of gait and mobility (principal); M62.81 Muscle weakness (generalized); F03.90 Unspecified dementia, unspecified severity, without behavioral disturbance, psychotic disturbance, mood disturbance, and anxiety; Z73.6 Limitation of activities due to disability | CPT/HCPCS: 97110; 97112; 97129; 97130; 97164; 97530 ==

== ENCOUNTER 2025-04-27 10:00 | Outpatient (RCR) | payer MEDICARE, OTHER, SELFPAY | END 2025-05-05 08:42 | disposition home or self-care (01) | LOC: RST 10:00 | PROVIDERS: ATTENDING PHYSICIAN Specialist; FAMILY PHYSICIAN Student in an Organized Health Care Education/Training Program | DX: G31.84 Mild cognitive impairment of uncertain or unknown etiology (principal); G30.1 Alzheimer's disease with late onset; F02.80 Dementia in other diseases classified elsewhere, unspecified severity, without behavioral disturbance, psychotic disturbance, mood disturbance, and anxiety; R41.841 Cognitive communication deficit; R41.89 Other symptoms and signs involving cognitive functions and awareness; R26.89 Other abnormalities of gait and mobility | CPT/HCPCS: 97129; 97130 ==

== ENCOUNTER → 2025-05-15 13:01 | Outpatient (REF) | payer MEDICARE, OTHER, SELFPAY | LOC: PAVMRI 13:01 | PROVIDERS: ATTENDING PHYSICIAN Student in an Organized Health Care Education/Training Program | DX: M54.50 Low back pain, unspecified (principal) | CPT/HCPCS: 72148 ==

== ENCOUNTER 2025-05-25 08:23 | Outpatient (RCR) | payer MEDICARE, OTHER, SELFPAY | END 2025-05-25 23:59 | disposition home or self-care (01) | LOC: RPT 08:23 | PROVIDERS: ATTENDING PHYSICIAN Student in an Organized Health Care Education/Training Program | DX: R26.89 Other abnormalities of gait and mobility (principal); M62.81 Muscle weakness (generalized); F03.90 Unspecified dementia, unspecified severity, without behavioral disturbance, psychotic disturbance, mood disturbance, and anxiety; Z73.6 Limitation of activities due to disability | CPT/HCPCS: 97110; 97112; 97530 ==

== ENCOUNTER 2025-05-25 10:00 | Outpatient (RCR) | payer MEDICARE, OTHER, SELFPAY | END 2025-06-04 08:40 | disposition home or self-care (01) | LOC: RST 10:00 | PROVIDERS: ATTENDING PHYSICIAN Specialist; FAMILY PHYSICIAN Student in an Organized Health Care Education/Training Program | DX: G30.1 Alzheimer's disease with late onset (principal); F02.80 Dementia in other diseases classified elsewhere, unspecified severity, without behavioral disturbance, psychotic disturbance, mood disturbance, and anxiety; R26.89 Other abnormalities of gait and mobility; G31.84 Mild cognitive impairment of uncertain or unknown etiology; R41.841 Cognitive communication deficit; R41.89 Other symptoms and signs involving cognitive functions and awareness | CPT/HCPCS: 97129; 97130 ==

== ENCOUNTER 2025-06-22 07:19 | Outpatient (RCR) | payer MEDICARE, OTHER, SELFPAY | END 2025-06-22 23:59 | disposition home or self-care (01) | LOC: RPT 07:19 | PROVIDERS: ATTENDING PHYSICIAN Student in an Organized Health Care Education/Training Program | DX: R26.89 Other abnormalities of gait and mobility (principal); M62.81 Muscle weakness (generalized); F03.90 Unspecified dementia, unspecified severity, without behavioral disturbance, psychotic disturbance, mood disturbance, and anxiety; Z73.6 Limitation of activities due to disability | CPT/HCPCS: 97110; 97112; 97129; 97130; 97530 ==

== ENCOUNTER 2025-06-22 07:20 | Outpatient (RCR) | payer MEDICARE, OTHER, SELFPAY | END 2025-06-22 23:59 | disposition home or self-care (01) | LOC: RST 07:20 | PROVIDERS: ATTENDING PHYSICIAN Specialist; FAMILY PHYSICIAN Student in an Organized Health Care Education/Training Program | DX: G30.1 Alzheimer's disease with late onset; F02.80 Dementia in other diseases classified elsewhere, unspecified severity, without behavioral disturbance, psychotic disturbance, mood disturbance, and anxiety; R26.89 Other abnormalities of gait and mobility; G31.84 Mild cognitive impairment of uncertain or unknown etiology; R41.841 Cognitive communication deficit; R41.89 Other symptoms and signs involving cognitive functions and awareness | CPT/HCPCS: 97129; 97130 ==